=== PATIENT | female | born 1985 | race African-American/Black ===

== ENCOUNTER 2016-08-07 15:24 | Emergency (ER) ==
[2016-08-07 15:36] VITALS: BP 135/81
[2016-08-07] MEDS ORDERED: BICILLIN L-A IM ONE (16:12)
--- NOTE | 2016-08-07 16:13 | PROVIDER DOCUMENTATION ---
HPI-EENT General - General Chief Complaint: Sore Throat Stated Complaint: SORE THROAT Time Seen by Provider: 08/07/16 15:40 Allergies/Adverse Reactions: Patient Allergies Allergy/AdvReac Type Severity Reaction Status Date / Time No Known Allergies Allergy Verified 01/27/16 08:06 Home Medications: Ferrous Sulfate [Iron] 325 mg PO DAILY 01/26/13 Prenat Vit Comb.10/Iron/FA/Dha [Cavan-Folate Dha Combo Pack] 1 tab PO DAILY 08/10 Past History - Adult - PAST MEDICAL HISTORY-ADULT Major Childhood Illnesses: reports: denies history Cardiovascular: reports: denies history Respiratory: reports: denies history Gastrointestinal: reports: denies history Genitourinary: reports: denies history Musculoskeletal: reports: denies history Neurological: reports: denies history Psychiatric: reports: denies history Endocrine/Immune: reports: denies history - PRIOR SURGERIES/PROCEDURES Surgical/Procedure History: reports: reviewed, not pertinent - PRIOR HOSPITALIZATIONS Prior Hospitalizations: reports: none - IMMUNIZATION STATUS Childhood Immunizations: See Nurse Assessment Flu Vaccine: See Nurse Assessment - FAMILY HISTORY Family History: reviewed, not pertinent Progress - PLAN OF CARE/RESULTS Progress/Plan/Lab Results: Discussed patient with Dr. Parks, agrees with treatment, dosposition and plan. Vital Signs Temp Pulse Resp BP Pulse Ox 08/07/16 15:32 99.3 F 103 H 20 135/81 98 No Known Allergies Allergy (Verified 01/27/16 08:06) Ferrous Sulfate [Iron] 325 mg PO DAILY 01/26/13 Prenat Vit Comb.10/Iron/FA/Dha [Cavan-Folate Dha Combo Pack] 1 tab PO DAILY 08/10 Laboratory 08/07/16 15:35 Group A Strep Rapid NEGATIVE Orders Category Date Time Status DIRECT STREP PL Stat Lab 08/07/16 15:35 Completed Patient has remained Afebrile, no vocal changes, no difficulty eating, breathing or swallowing. Discussed this point with Dr. Parks, because we cannot CT her due to , do not believe the risks outweigh the benefits at this point. We will have her f/u with the ENT for this, this week. Dr. Parks was to bedside and explained this to the patient. Departure - Departure Time of Disposition Order: 16:08 DIAGNOSIS: Peritonsillar abscess Disposition: HOME 01 Certified Medical Emergency: Emergent Condition: Stable Additional Instructions: Follow up with Dr. Pelletier ED Follow Up Instructions: You have been treated by a care provider in the Emergency Department. These instructions are being provided to you so you can have an understanding of how to care for yourself upon discharge. Upon discharge from the Emergency Department, you are responsible for making arrangements for follow-up care by a physician of your choice. Take all prescribed medications as directed. Return to the Emergency Department immediately for any new or worsening symptoms. You may call the Physician Referral phone number at [phone] to obtain a list of Physicians who are taking new patients. Prescriptions: Cefdinir 300 mg PO BID #28 capsule Attestation - Physician/ Mid-level Attestation Patient care was provided by Mid-level provider (CUSTOMER RETENTION REPRESENTATIVE/PA):: Yes Mid-level provider:: Julienne Mccarthy Mid-level documentation review:: The Mid-level provider documentation, treatment plan and medical decision making was reviewed by the physician who agrees with all treatment and medical decision making by the MLP. The physician spent face to face time with patient:: Yes
--- NOTE | 2016-08-07 16:15 | PROVIDER DOCUMENTATION ---
HPI-EENT General - General Chief Complaint: Sore Throat Stated Complaint: SORE THROAT Time Seen by Provider: 08/07/16 15:40 Source: patient Allergies/Adverse Reactions: Patient Allergies Allergy/AdvReac Type Severity Reaction Status Date / Time No Known Allergies Allergy Verified 01/27/16 08:06 Home Medications: Ferrous Sulfate [Iron] 325 mg PO DAILY 01/26/13 Prenat Vit Comb.10/Iron/FA/Dha [Cavan-Folate Dha Combo Pack] 1 tab PO DAILY 08/10 - History of Present Illness-EENT General Nature of Presenting Problem: patient is a 31 y/o F that presents to the ER with sore throat x 3 days. she is , denies fever/chills, neck pain, or cough. EENT Location: reports: throat Quality of Pain: reports: aching, burning Severity: reports: moderate Onset/Duration: reports: gradual, 3 days ago Timing: reports: still present, constant Prearrival Treatment: Initiated no prearrival treatment Associated Symptoms: reports: sore throat. denies: drooling, ear drainage, poor solids intake, sinus infection, voice change Locality of Occurance: Home Similar Symptoms Previously?: No Recently seen or treated by another doctor?: No Review of Systems - Adult - REVIEW OF SYSTEMS - ADULT Constitutional: denies: chills, fever Eyes: denies: blurred vision, double vision Ears, Nose, Mouth & Throat: reports: throat pain, throat swelling. denies: ear pain, sinus problem Cardiovascular: denies: chest pain, palpitations Respiratory: denies: cough, shortness of breath, wheezing Gastrointestinal: denies: abdominal pain, diarrhea, nausea, vomiting Genitourinary: reports: no symptoms reported Musculoskeletal: reports: no symptoms reported Integumentary: reports: no symptoms reported Neurological: reports: no symptoms reported Psychiatric: reports: no symptoms reported Endocrine: reports: no symptoms reported Hematologic/Lymphatic: reports: no symptoms reported Allergic/Immunologic: reports: no symptoms reported All Other Systems: Reviewed and Negative Past History - Adult - PAST MEDICAL HISTORY-ADULT Review of Records: reports: Old Records Reviewed, Nursing Assessment Review, Medications Reviewed, Social history reviewed & non-contributory. Major Childhood Illnesses: reports: denies history Cardiovascular: reports: denies history Respiratory: reports: denies history Gastrointestinal: reports: denies history Genitourinary: reports: denies history Musculoskeletal: reports: denies history Neurological: reports: denies history Psychiatric: reports: denies history Endocrine/Immune: reports: denies history - PRIOR SURGERIES/PROCEDURES Surgical/Procedure History: reports: reviewed, not pertinent - PRIOR HOSPITALIZATIONS Prior Hospitalizations: reports: none - IMMUNIZATION STATUS Childhood Immunizations: See Nurse Assessment Flu Vaccine: See Nurse Assessment - FAMILY HISTORY Family History: reviewed, not pertinent Physical Exam- EENT - Physical Exam EENT Initial Vital Signs Reviewed: Yes General Appearance: alert, no apparent distress Eye Exam: bilateral eye: normal inspection, PERRL Ear Exam: bilateral ear: canal normal, TM normal Nasal Exam: normal inspection. negative: foreign body Throat Exam: tonsillar swelling, uvula swelling (with deviation to left) Neck: supple, lymphadenopathy (anterior). negative: C-spine tenderness, limited range of motion Respiratory: lungs clear, normal breath sounds, no respiratory distress, no accessory muscle use Cardiovascular: normal peripheral pulses, regular rate, rhythm, no murmur Abdominal Exam: normal bowel sounds, non tender, soft, no organomegaly, no pulsatile mass Lymphatic: negative: enlargement, striations Back Exam: normal inspection, no CVA tenderness, no vertebral tenderness Extremity: normal range of motion, normal inspection, no pedal edema Integumentary: normal color, normal turgor, warm/dry Neurologic: grossly normal, no motor/sensory deficits Psych/Mental Status: normal mood/affect, normal thought content, normal thought process, oriented x 3 Progress - PLAN OF CARE/RESULTS Progress/Plan/Lab Results: plan of care-Injection of antibiotic shot, was at bedside 1605 agrees with plan of care and she examined the patient. Vital Signs Temp Pulse Resp BP Pulse Ox 08/07/16 15:32 99.3 F 103 H 20 135/81 98 No Known Allergies Allergy (Verified 01/27/16 08:06) Ferrous Sulfate [Iron] 325 mg PO DAILY 01/26/13 Prenat Vit Comb.10/Iron/FA/Dha [Cavan-Folate Dha Combo Pack] 1 tab PO DAILY 08/10 Cefdinir 300 mg PO BID #28 capsule 08/07/16 Laboratory 08/07/16 15:35 Group A Strep Rapid NEGATIVE Orders Category Date Time Status DIRECT STREP PL Stat Lab 08/07/16 15:35 Completed Penicillin G Benzathine [Bicillin l-A] Med 08/07/16 16:12 Discontinued 2,400,000 unit IM NOW ONE Departure - Departure DIAGNOSIS: Peritonsillar abscess Disposition: HOME 01 Referrals: Serafin Yun [Primary Care Provider] - Attestation - Scribe Verification/Attestation Scribe:: Renny Yates Acting as Scribe for:: Julienne Mccarthy Scribe documention review:: This chart was documented by a scribe and accurately reflects the service the provider performed and the decisions made by the provider. - Physician/ Mid-level Attestation Patient care was provided by Mid-level provider (GORE MAKER/PA):: Yes Mid-level provider:: Julienne Mccarthy Mid-level documentation review:: The Mid-level provider documentation, treatment plan and medical decision making was reviewed by the physician who agrees with all treatment and medical decision making by the [facility]. The physician spent face to face time with patient:: Yes
[2016-08-07] MEDS ORDERED: BICILLIN L-A ONE (16:38)
== END 2016-08-07 16:57 | disposition home or self-care (01) ==
LOC: P.ED 15:24
DX: O26.899 Other specified pregnancy related conditions, unspecified trimester (principal); J36 Peritonsillar abscess; J02.9 Acute pharyngitis, unspecified; R22.1 Localized swelling, mass and lump, neck; R59.0 Localized enlarged lymph nodes
CPT/HCPCS: 87081; 87430; 96372; J0561

== ENCOUNTER 2016-10-13 10:04 | Emergency (ER) ==
[2016-10-13 10:19] VITALS: BP 126/72
[2016-10-13] MEDS ORDERED: DECADRON IM ONE (10:26)
--- NOTE | 2016-10-13 10:26 | PROVIDER DOCUMENTATION ---
HPI-Rash/Wound/ReCheck - General Chief Complaint: Insect Bite/Sting Stated Complaint: INSECT BITE Time Seen by Provider: 10/13/16 10:19 Source: patient Allergies/Adverse Reactions: Allergies Allergy/AdvReac Type Severity Reaction Status Date / Time No Known Allergies Allergy Verified 10/13/16 10:21 Home Medications: Home Medication List Medication Instructions Recorded Confirmed Last Taken Type Ferrous Sulfate [Iron] 325 mg PO DAILY 01/26/13 10/13/16 10/12/16 19:00 History Prenat Vit Comb.10/Iron/FA/Dha 1 tab PO DAILY 01/26/13 10/13/16 10/12/16 21:00 History [Cavan-Folate Dha Combo Pack] Cephalexin [Keflex] 500 mg PO BID #14 capsule 10/13/16 Unknown Rx - History of Present Illness-Dermatology Nature of Presenting Problem: 31 y/o AAF 31 wks gestation, c/o possible inset bite to the left lower extremity laterally. States she noticed it yesterday, it itches, and can be painful. Denies trauma to the area or known insect bite. hx of eczema on the same area. Denies chest pain, sob, difficulty breathing or swallowing. Denies known allergens. Review of Systems - Adult - REVIEW OF SYSTEMS - ADULT Constitutional: reports: no symptoms reported. denies: chills, fever, fatique Eyes: reports: no symptoms reported. denies: blurred vision, double vision, eye pain Ears, Nose, Mouth & Throat: reports: no symptoms reported. denies: ear pain, nose pain, throat pain Cardiovascular: reports: no symptoms reported. denies: chest pain, palpitations Respiratory: reports: no symptoms reported. denies: cough, shortness of breath Gastrointestinal: reports: no symptoms reported. denies: abdominal pain, diarrhea, nausea, vomiting Genitourinary: reports: no symptoms reported. denies: dysuria, discharge, frequency Musculoskeletal: reports: no symptoms reported. denies: bone pain, back pain, muscle aches Integumentary: reports: see HPI, itching, rash Neurological: reports: no symptoms reported Psychiatric: reports: no symptoms reported Endocrine: reports: no symptoms reported Hematologic/Lymphatic: reports: no symptoms reported Allergic/Immunologic: reports: no symptoms reported All Other Systems: Reviewed and Negative Past History - Adult - PAST MEDICAL HISTORY-ADULT Review of Records: reports: Old Records Reviewed, Nursing Assessment Review, Medications Reviewed Major Childhood Illnesses: reports: denies history Cardiovascular: reports: denies history Respiratory: reports: denies history Gastrointestinal: reports: denies history Obstetrical/Gynecological: reports: denies history Genitourinary: reports: denies history Musculoskeletal: reports: denies history Neurological: reports: denies history Psychiatric: reports: denies history Endocrine/Immune: reports: denies history Other Conditions: reports: eczema - PRIOR SURGERIES/PROCEDURES Surgical/Procedure History: reports: reviewed, not pertinent - PRIOR HOSPITALIZATIONS Prior Hospitalizations: reports: none - IMMUNIZATION STATUS Childhood Immunizations: See Nurse Assessment Flu Vaccine: See Nurse Assessment - FAMILY HISTORY Family History: reviewed, not pertinent - SOCIAL HISTORY Smoking: denies Substance Use: none/never Alcohol Use Frequency: never Physical Exam-General - PHYSICAL EXAM-ADULT Initial Vital Signs Reviewed: Yes - CONSTITUTIONAL General Appearance: appears well, alert, no apparent distress - EYES Eyes: PERRL/EOMI, pink conjunctivae - HEAD, EARS, NOSE, MOUTH & THROAT HENMT: normocephalic/atraumatic, moist mucous membranes - NECK Neck: non-tender, full range of motion, supple, normal inspection - RESPIRATORY Respiratory: chest non-tender, lungs clear, normal breath sounds, no pleuratic chest pain, no respiratory distress, no accessory muscle use. negative: respiratory distress, decreased breath sounds, accessory muscle use, crackles, rales, rhonchi, wheezing - CARDIOVASCULAR Cardiovascular: normal peripheral pulses, regular rate, rhythm - MUSCULOSKELETAL Extremity: normal range of motion, non-tender, normal gait - SKIN Integumentary: normal color, normal turgor, warm/dry, rash (apparent cellulitis overlaying chornic inflammation of the skin secondary to eczema.) - NEUROLOGIC Neurologic: grossly normal, no motor/sensory deficits - PSYCHIATRIC Psych/Mental Status: normal mood/affect, normal thought content, normal thought process, oriented x 3 Progress - PLAN OF CARE/RESULTS Progress/Plan/Lab Results: Vital Signs Temp Pulse Resp BP Pulse Ox 10/13/16 10:08 97.9 F 97 H 20 126/72 99 No Known Allergies Allergy (Verified 10/13/16 10:21) Ferrous Sulfate [Iron] 325 mg PO DAILY 01/26/13 Prenat Vit Comb.10/Iron/FA/Dha [Cavan-Folate Dha Combo Pack] 1 tab PO DAILY 08/10 Cephalexin [Keflex] 500 mg PO BID #14 capsule 10/13/16 Orders Category Date Time Status Dexamethasone [Decadron] Med 10/13/16 10:26 Stop Req 10 mg IM NOW ONE decadron not given. Departure - Departure Time of Disposition Order: 10:25 DIAGNOSIS: Cellulitis and abscess of leg Disposition: HOME 01 Certified Medical Emergency: Emergent Condition: Stable Additional Instructions: Follow up with your primary care physician this week. ED Follow Up Instructions: You have been treated by a care provider in the Emergency Department. These instructions are being provided to you so you can have an understanding of how to care for yourself upon discharge. Upon discharge from the Emergency Department, you are responsible for making arrangements for follow-up care by a physician of your choice. Take all prescribed medications as directed. Return to the Emergency Department immediately for any new or worsening symptoms. You may call the Physician Referral phone number at [phone] to obtain a list of Physicians who are taking new patients. Prescriptions: Cephalexin [Keflex] 500 mg PO BID #14 capsule Referrals: Serafin Yun [Primary Care Provider] - Attestation - Physician/ KENNY Attestation Patient care was provided by Advanced Practice Provider:: Yes Advanced Practice Provider:: Julienne Mccarthy Advanced Practice Provider documentation review:: The Mid-level provider documentation, treatment plan and medical decision making was reviewed by the physician who agrees with all treatment and medical decision making by the [facility].
== END 2016-10-13 10:34 | disposition home or self-care (01) ==
LOC: ED 10:04
DX: O26.893 Other specified pregnancy related conditions, third trimester (principal); L03.116 Cellulitis of left lower limb; R21 Rash and other nonspecific skin eruption; L29.9 Pruritus, unspecified; L30.9 Dermatitis, unspecified; Z3A.31 31 weeks gestation of pregnancy

== ENCOUNTER 2016-12-07 00:04 | Inpatient (IN) ==
[2016-12-07] MEDS ORDERED: STADOL IV PRN ×2 (00:40)
[2016-12-07] MEDS ORDERED: ZOFRAN IV PRN (00:40)
[2016-12-07] MEDS ORDERED: KEFZOL 1 GM/D5W 1 GM/50 ML IVPB IV PRN (00:40)
[2016-12-07] MEDS ORDERED: AMBIEN PO PRN ×2 (00:40→14:16)
[2016-12-07] MEDS ORDERED: TYLENOL PO PRN (00:40)
[2016-12-07] MEDS ORDERED: PEPCID PO PRN (00:40)
[2016-12-07] MEDS ORDERED: PEPCID IV PRN (00:40)
[2016-12-07] MEDS ORDERED: BRETHINE SUBQ PRN (00:40)
[2016-12-07] MEDS: LR 1,000 ML IV ONE ×3 (01:00→08:28)
[2016-12-07 01:30] LABS: BASO% 0.1 % (0.0-0.8); EOS# 0.11 X1000 (0.0-0.7); EOS% 1.4 % (0.0-10.0); HEMATOCRIT 35.4 % (37.0-47.0); HEMOGLOBIN 10.8 g/dL (12.0-16.0); IMM GRAN# 0.01 X1000 (0.0-0.04); IMM GRAN% 0.1 % (0.0-0.5); LYMPH# 1.16 X1000 (1.2-3.4); MANUAL DIFF NEEDED? YES; MCH 21.3 PG (27-31); MCHC 30.5 g/dL (33-37); MCV 69.8 FL (81-99); MONO# 0.77 X1000 (0.11-0.59); MONO% 9.9 % (1.7-9.3); MPV 11.1 FL (7.4-10.4); NEUT% 73.5 % (42.2-75.2); PLT 362 X1000 (130-400); RBC 5.07 XMIL (4.2-5.4)
[2016-12-07 01:53] LABS: BANDS 3 % (0-1); LYMPHS 17 % (21-51)
[2016-12-07 01:54] LABS: EOS 2 % (1-10); HYPOCHROM 2+; MONO 5 % (1-9)
[2016-12-07 02:45] LABS: URINE SOURCE VOIDED
[2016-12-07 02:57] LABS: BILIRUBIN URINE NEGATIVE (NEGATIVE); CLARITY CLEAR (CLEAR); COLOR YELLOW; GLUCOSE URINE NEGATIVE (NEGATIVE)
[2016-12-07 02:58] LABS: LEUKOCYTES URINE 2+ (NEGATIVE)
[2016-12-07] MEDS ORDERED: CYTOTEC PO ONE (03:00)
[2016-12-07] MEDS: STADOL IV PRN ×2 (03:31→08:13)
[2016-12-07 04:01] LABS: BLOOD URINE 4+ (NEGATIVE); NITRITE URINE NEGATIVE (NEGATIVE); PROTEIN URINE TRACE mg/dL (NEGATIVE); UROBILINOGEN URINE NORMAL
[2016-12-07] MEDS ORDERED: PITOCIN 30 UNITS/LR 30 UNITS/500 ML IV.SOLN IV SCH (07:00)
[2016-12-07] MEDS ORDERED: FENTANYL-BUPIV-NS 2 MCG-0.1% 200 ML EPIDURAL PRN (07:59)
[2016-12-07] MEDS ORDERED: XYLOCAINE-MPF 1% INJ ONE (08:08)
[2016-12-07] MEDS ORDERED: MINERAL OIL ONE (08:11)
[2016-12-07] MEDS ORDERED: XYLOCAINE-MPF 1% ONE (08:11)
[2016-12-07] MEDS ORDERED: MARCAINE 0.5% PF INJ ONE (08:15)
[2016-12-07] MEDS ORDERED: LR 1,000 ML IV SCH (08:28)
[2016-12-07] MEDS ORDERED: PITOCIN 20 UNITS/LR 20 UNITS/1,000 ML IV.SOLN ONE (14:12)
[2016-12-07] MEDS ORDERED: BOOSTRIX VACCINE IM ONE (14:16)
[2016-12-07] MEDS ORDERED: HYDROXYZINE IM PRN (14:16)
[2016-12-07] MEDS ORDERED: PITOCIN 20 UNITS/LR 20 UNITS/1,000 ML IV.SOLN IV SCH (14:16)
[2016-12-07] MEDS ORDERED: HYDROXYZINE PO PRN (14:16)
[2016-12-07] MEDS ORDERED: BENADRYL IV PRN (14:16)
[2016-12-07] MEDS ORDERED: PERI MEDS (DERMOPLAST/NUPERCAINAL/TUCKS) MISC PRN (14:16)
[2016-12-07] MEDS ORDERED: M-M-R II VACCINE SUBQ ONE (14:16)
[2016-12-07] MEDS ORDERED: XYLOCAINE-MPF 1% INJ PRN (14:16)
[2016-12-07] MEDS ORDERED: NORCO-5 PO PRN (14:16)
[2016-12-07] MEDS ORDERED: PERCOCET-5 PO PRN (14:16)
[2016-12-07] MEDS ORDERED: BENADRYL PO PRN (14:16)
[2016-12-07] MEDS ORDERED: PITOCIN 30 UNITS/LR 30 UNITS/500 ML IV.SOLN IV ONE (14:16)
[2016-12-07] MEDS ORDERED: PITOCIN IM PRN (14:16)
[2016-12-07] MEDS ORDERED: PERCOCET-10 PO PRN (14:16)
[2016-12-07] MEDS ORDERED: CYTOTEC PO PRN (14:16)
[2016-12-07] MEDS ORDERED: NORCO-10 PO PRN (14:16)
[2016-12-07] MEDS ORDERED: MINERAL OIL PO PRN (14:16)
--- NOTE | 2016-12-07 14:44 | OPERATIVE NOTE ---
PROCEDURE DATE: 12/07/2016 DELIVERY PHYSICIAN: Mike Craven MD TYPE OF DELIVERY: Spontaneous controlled vaginal delivery. ANESTHESIA: Epidural. FINDINGS: At 1343 a 6-pound 14-ounce male was delivered in occiput anterior presentation. There was a nuchal cord x2. Apgars were 9 at 1 minute and 10 at 5 minutes. SUMMARY: Ramon Aceves is a 31-year-old 3, para 2-0-0-2 who is at term gestation. Her blood type is B positive. Rubella nonimmune. Hepatitis B surface antigen, HIV, and group B strep is negative. This patient was brought in early this morning, began induction of labor. Our 1st examination showed her to be 2 cm dilated, membranes ruptured revealing clear fluid. An epidural was placed for labor pain management and IV Pitocin was begun. She progressed to labor without signs of dystocia. She began having some decelerations and was found to be complete. She began pushing and rapidly crowned. At that point, she was placed in dorsal lithotomy position. Perineum was prepped and draped in usual fashion. Spontaneous delivery occurred over a second- degree midline episiotomy. There was a nuchal cord x2. Once the head was delivered, the oropharynx was bulb suctioned. The shoulders and body delivered without complications after nuchal cord was reduced. The cord was clamped, cut. The was handed to the nurses for further care and evaluation. Cord blood was obtained. Placenta was spontaneously delivered and was intact. The second-degree midline episiotomy was repaired in layers using 2-0 Vicryl suture. Blood loss approximately 200 mL. There were no complications noted. The patient remained in the LDR recovering without difficulty. cc: Mike Craven MD
[2016-12-07] MEDS: CYTOTEC PO SCH (15:04)
[2016-12-07] MEDS: MOTRIN PO PRN (19:20)
[2016-12-07] MEDS: PERICOLACE PO SCH (21:03)
[2016-12-08] MEDS: MOTRIN PO PRN ×3 (04:41→20:59)
[2016-12-08 08:43] LABS: HEMATOCRIT 32.5 % (37.0-47.0); HEMOGLOBIN 10.2 g/dL (12.0-16.0); MCH 22.1 PG (27-31); MCHC 31.4 g/dL (33-37); MCV 70.5 FL (81-99); MPV 10.9 FL (7.4-10.4); RBC 4.61 XMIL (4.2-5.4)
[2016-12-08] MEDS: PRECARE PO SCH (09:04)
[2016-12-08] MEDS: HEMOCYTE PLUS CAPSULE PO SCH (09:05)
[2016-12-08] MEDS: PERICOLACE PO SCH (20:59)
[2016-12-09] MEDS: PRECARE PO SCH (08:25)
[2016-12-09] MEDS: HEMOCYTE PLUS CAPSULE PO SCH (08:25)
[2016-12-09] MEDS: MOTRIN PO PRN (08:25)
[2016-12-09 09:28] VITALS: BP 152/68
== END 2016-12-09 12:45 | disposition home or self-care (01) ==
LOC: P.LD 00:04
PROVIDERS: ADMIT Obstetrics & Gynecology; ATTEND Obstetrics & Gynecology